=== PATIENT | female | born 2000 | race Caucasian/White ===

== ENCOUNTER 2023-12-25 02:13 | Emergency (ER) | payer OTHER ==
[~2023-12-25] VITALS: Ht 157.5 cm; Wt 54.5 kg
[2023-12-25 02:22] VITALS: TEMP 97.3
[2023-12-25] MEDS ORDERED: Ondansetron 4 MG/2 ML VIAL IV ONE (02:45)
[2023-12-25] MEDS ORDERED: Acetaminophen 500 MG TAB PO ONE (02:45)
[2023-12-25] MEDS ORDERED: LR 1,000 ML IV ONE (02:45)
[2023-12-25 02:56] LABS: ALANINE AMINOTRANSFERASE 26 U/L (0-55); ALBUMIN 4.7 g/dL (3.5-5.0); ALKALINE PHOSPHATASE 60 U/L (40-150); ANION GAP 18 mmol/L (7-16); AST,SGOT 25 U/L (5-34); BILIRUBIN,TOTAL 0.4 mg/dL (0.2-1.2); BLOOD UREA NITROGEN 12 mg/dL (7-19); CALCIUM 10.2 mg/dL (8.4-10.2); CHLORIDE 105 mEq/L (98-107); CREATININE, serum 0.78 mg/dL (0.57-1.11); GLUCOSE 187 mg/dL (70-99); LIPASE 9 U/L (8-78); POTASSIUM 3.8 mEq/L (3.5-4.5); SODIUM 138 mEq/L (136-145); TOTAL PROTEIN 8.3 g/dl (6.2-8.1)
[2023-12-25 02:58] LABS: HEMATOCRIT 43.6 % (37.0-47.0); HEMOGLOBIN 15.6 g/dl (12.5-16.0); MEAN CELL VOLUME 88 fl (80.0-100.0); MEAN CORPUSCULAR HEMOGLOBIN 31 pg (27-31); MEAN CORPUSCULAR HGB CONC 36 g/dl (33.0-37.0); MEAN PLATELET VOLUME 9.8 fl (7.4-10.4); PLATELET COUNT 310 K/mm3 (130-400); RED BLOOD COUNT 4.97 M/mm3 (4.10-5.30); REDCELL DISTRIBUTION WIDTH-CV 11.7 % (11.5-14.5)
[2023-12-25 03:03] LABS: TROPONIN-I < 0.010 ng/mL (0.00-0.033)
[2023-12-25 03:38] LABS: BAND 3 % (0-10); LYMPHOCYTE 3 % (20.0-51.0); NEUTROPHILS 92 % (42.0-75.2); PLATELET ESTIMATE NORMAL (NORMAL)
[2023-12-25 04:26] LABS: COLLECTION METHOD CLEAN CATCH
[2023-12-25 04:34] LABS: PH 5.5 (5.0-8.5); URINE APPEARANCE CLEAR (CLEAR/HAZY); URINE BLOOD NEGATIVE (NEGATIVE); URINE COLOR YELLOW (YELLOW); URINE GLUCOSE 2+ (NEGATIVE); URINE KETONE 3+ (NEGATIVE); URINE NITRATE NEGATIVE (NEGATIVE); URINE PROTEIN(semi-quant) 1+ (NEGATIVE)
[2023-12-25] MEDS ORDERED: NS 1,000 ML IV ONE (04:45)
[2023-12-25 06:46] LABS: CALCIUM 9.1 mg/dL (8.4-10.2); CREATININE, serum 0.71 mg/dL (0.57-1.11); POTASSIUM 3.7 mEq/L (3.5-4.5)
[2023-12-25] MEDS ORDERED: ZOFRAN ODT4 MG PO (06:55)
[2023-12-25 07:17] VITALS: BP 119/79; PULSE 82
== END 2023-12-25 07:18 | disposition home or self-care (01) ==
LOC: COL.ER 02:13
PROVIDERS: Emergency Medicine
DX: E87.20 Acidosis, unspecified (principal); D72.829 Elevated white blood cell count, unspecified; R73.09 Other abnormal glucose; R10.13 Epigastric pain; R82.4 Acetonuria
CPT/HCPCS: J2405; J2765; J7030; J7120